=== PATIENT | female | born 1945 | race Caucasian/White ===

== ENCOUNTER 2020-01-22 21:24 | Observation (INO) | payer MEDICARE ==
[~2020-01-22] VITALS: Ht 170.2 cm; Wt 61.0 kg
[~2020-01-22 21:24] MED LIST: CEPH500; DETROL PO; ESTMED1.5T; NAPR500; OMEP20ER PO; SULTRIDS PO; [UNRECOGNIZED DRUG - REMARK]
[2020-01-22 22:33] LABS: Hematocrit 31.4 % (33.0-51.0); Hemoglobin 10.7 g/dL (11.5-16.0)
[2020-01-22 22:51] LABS: Hematocrit 31.3 % (33.0-51.0); Hemoglobin 10.6 g/dL (11.5-16.0); Mean Corpuscular HGB 31.5 pg (26.0-34.0); Mean Corpuscular HGB Conc 33.9 g/dL (31.5-36.5); Mean Corpuscular Volume 93 fL (80-100); Mean Platelet Volume 10.8 fL (9.1-12.4); Platelet Count 172 K/mm3 (150-400); RDW Coefficient Variation 12.1 % (11.7-14.2); RDW Standard Deviation 41.1 fL (35.1-46.3); Red Blood Cell Count 3.37 M/mm3 (3.80-5.20); White Blood Cell Count 2.89 K/mm3 (4.00-11.30)
[2020-01-22 22:56] LABS: International Normalized Ratio 0.96; Prothrombin Time Results 10.3 Sec (9.7-11.5)
[2020-01-22 23:05] LABS: Alanine Aminotransfer (ALT/SGP 17 U/L (12-78); Albumin, Blood 2.8 g/dL (3.4-5.0); Albumin/Globulin Ratio 0.9 (0.8-1.8); Alk Phos 35 U/L (50-136); Anion Gap 4 mmol/L (6-16); Aspartate Aminotrans (AST/SGOT 12 U/L (12-37); Bilirubin, Total 0.3 mg/dL (0.1-1.0); Blood Urea Nitrogen 4 mg/dL (8-24); Bun/Creatinine Ratio 5.6 (12.0-20.0); CO2, Blood 30 mmol/L (21-32); Calcium, Blood 8.3 mg/dL (8.5-10.1); Chloride, Blood 107 mmol/L (98-108); Creatinine, Blood 0.71 mg/dL (0.40-1.00); Globulin, Blood 3.2 g/dL (2.2-4.0); Glomerular Filtration Rate >60 (60-); Glucose, Blood 98 mg/dL (70-99); Sodium, Blood 141 mmol/L (136-145); Troponin I <0.015 ng/mL (0.000-0.040)
[2020-01-22 23:20] LABS: BASOPHILS PERCENT MAN 0 % (0-2); EOSINOPHILS ABSOLUTE MAN 0.05 K/mm3 (0.00-0.68); EOSINOPHILS PERCENT MAN 2 % (0-6); LYMPHOCYTES ABSOLUTE MAN 1.84 K/mm3 (0.84-5.20); LYMPHOCYTES PERCENT MAN 64 % (21-46); MONOCYTES ABSOLUTE MAN 0.26 K/mm3 (0.16-1.47); MONOCYTES PERCENT MAN 9 % (4-13); NEUTROPHILS ABSOLUTE MAN 0.72 K/mm3 (1.96-9.15); SEG NEUTROPHILS PERCENT MAN 25 % (41-73); TOTAL CELLS COUNTED 100
[2020-01-23] MEDS ORDERED: DONE5 PO (00:19)
[2020-01-23] MEDS ORDERED: KETO10 PO (00:20)
[2020-01-23] MEDS ORDERED: OXYB5 PO ×2 (00:21→00:23)
[2020-01-23] MEDS ORDERED: ETOD200 PO (00:22)
[2020-01-23] MEDS ORDERED: MIRT15 PO (00:23)
[2020-01-23] MEDS ORDERED: LOSA25 PO (00:24)
[2020-01-23] MEDS ORDERED: POTCHL20ER PO (00:49)
[2020-01-23 02:25] LABS: Hematocrit 32.3 % (33.0-51.0)
[2020-01-23 06:13] LABS: Hematocrit 31.1 % (33.0-51.0); Hemoglobin 10.3 g/dL (11.5-16.0)
[2020-01-23 09:02] LABS: Campylobacter Sp Detected (NOT DETECT); Cryptosporidium Not Detected (NOT DETECT); Cyclospora Cayetanensis Not Detected (NOT DETECT); E. Coli O157 Not Detected (NOT DETECT); Entamoeba Histolytica Not Detected (NOT DETECT); Enteroaggregative E. coli-EAEC Not Detected (NOT DETECT); Enteropathogenic E. coli-EPEC Not Detected (NOT DETECT); Enterotoxigenic E. coli-ETEC Not Detected (NOT DETECT); Plesiomonas Shigelloides Not Detected (NOT DETECT); Salmonella Sp Not Detected (NOT DETECT); Shiga Toxin-prod E. coli-STEC Not Detected (NOT DETECT); Shigella/Enteroin E. coli-EIEC Not Detected (NOT DETECT); Vibrio Cholerae Not Detected (NOT DETECT); Vibrio Sp Not Detected (NOT DETECT); Yersinia Enterocolitica Not Detected (NOT DETECT)
[2020-01-23 09:03] LABS: Adenovirus F 40/41 Not Detected (NOT DETECT); Astrovirus Not Detected (NOT DETECT); Giardia Lamblia Not Detected (NOT DETECT); Norovirus GI/GII Not Detected (NOT DETECT); Rotavirus A Not Detected (NOT DETECT); Sapovirus Not Detected (NOT DETECT)
[2020-01-23 10:34] LABS: Hematocrit 33.7 % (33.0-51.0)
[2020-01-23] MEDS ORDERED: ACET500 PO (17:10)
[2020-01-23] MEDS ORDERED: AZIT500 PO (17:11)
== END 2020-01-23 17:56 | disposition home or self-care (01) ==
LOC: ER 21:24 → MEDS 21:25
PROVIDERS: Emergency Medicine; Internal Medicine Gastroenterology; Nurse Practitioner Acute Care; ADMIT Internal Medicine
PROC: 0DB68ZZ Excision of Stomach, Via Natural or Artificial Opening Endoscopic (ICD-10-PCS; principal; 2020-01-23 13:30)
DX: K29.51 Unspecified chronic gastritis with bleeding (principal); K20.9 Esophagitis, unspecified; I10 Essential (primary) hypertension; F41.9 Anxiety disorder, unspecified; A04.5 Campylobacter enteritis; M19.90 Unspecified osteoarthritis, unspecified site; Z88.6 Allergy status to analgesic agent; K21.9 Gastro-esophageal reflux disease without esophagitis; Z79.1 Long term (current) use of non-steroidal anti-inflammatories (NSAID); Z79.899 Other long term (current) drug therapy
CPT/HCPCS: 0097U; 36415; 80053; 84484; 85007; 85014; 85018; 85027; 85610; 85730; 86850; 86900; 86901; 93005; 93010; 96374; 99285-25; C9113; J2704; J7030; J7120